=== PATIENT | male | born 2005 | race Caucasian/White ===

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

== ENCOUNTER 2024-02-24 13:49 | Emergency (ER) | payer SELFPAY ==
[2024-02-24 13:51] VITALS: BP 132/79; PULSE 94; RESP 18; TEMP 36.6; O2SAT 99
[2024-02-24] MEDS: HYDROcodone/acetaminophen (*CRX) 5-325 MG TABLET 1 TAB PO (15:08)
--- NOTE | 2024-02-24 15:17 | ED.DENTAL ---
HPI - Dental/Oral General Chief complaint: Dental/Oral Stated complaint: L. dental abscess and swelling Time Seen by Provider: 02/24/24 14:41 History of Present Illness HPI Narrative: Patient is a 18-year-old male who presents ER with dental pain. left upper side of the mouth. Swelling noted in worsening over last couple days. Has pain with eating. He is able to drink. No fevers or chills or sweats. Cannot afford a dentist. Has been on antibiotics for currently for several months. Related Data Allergies Allergy/AdvReac Type Severity Reaction Status Date / Time diphenhydramine Allergy Intermediate Rash Verified 02/24/24 13:50 [From Benadryl] Penicillins Allergy Intermediate Rash Verified 02/24/24 13:50 Review of Systems Constitutional: Constitutional: Reports no additional constitutional complaints ENT: Denies dysphagia and Denies nasal congestion Comments: Dental pain and left facial swelling PMFSH Past Medical History Medical History No significant medical problems Surgical History Surgical History No pertinent past surgical history Social History Social History Tobacco type: e-cigarettes/vaping Exam Narrative: GENERAL: Well-appearing, well-nourished, and in no acute distress. HEAD: Normocephalic, atraumatic. ENT: Mucous membranes moist. left upper facial swelling. Tenderness along the gumline without visualized abscess. Poor dentition. CHEST: Clear to auscultation. No respiratory distress. HEART: Regular rate and rhythm. Normal peripheral pulses. EXTREMITIES: Normal range of motion. No edema. NEURO: Alert and oriented x3. PSYCH: Normal mood and affect. Course Course Emergency Course: [place] for pain. Discharged with clindamycin. Vital Signs Vital signs: Vital Signs Temperature 97.9 F 02/24/24 13:51 Pulse Rate 94 02/24/24 13:51 Respiratory Rate 18 02/24/24 13:51 Blood Pressure 132/79 02/24/24 13:51 Pulse Oximetry 99 02/24/24 13:51 Oxygen Delivery Room Air 11/19/24 13:51 Temperature 97.9 F 02/24/24 13:51 Pulse Rate 94 02/24/24 13:51 Respiratory Rate 18 02/24/24 13:51 Blood Pressure 132/79 02/24/24 13:51 Pulse Oximetry 99 02/24/24 13:51 Oxygen Delivery Room Air 02/24/24 13:51 Discharge Plan Discharge Clinical Impression: Dental abscess Patient Disposition: Home, Self-Care Condition: Stable Instructions: Antibiotic Form, Dental Abscess (ED) Additional Instructions: Return the ER if you cannot breathe, you cannot swallow, or you have additional concerns. Prescriptions: New clindamycin HCl 150 mg capsule 450 mg PO TID 10 Days Qty: 90 0RF hydrocodone-acetaminophen 5-325 mg tablet 1 tablet PO Q6H PRN (Reason: pain) Qty: 12 0RF No Action clindamycin HCl 300 mg capsule 300 mg PO Q8H 10 Days Qty: 30 0RF lidocaine HCl [Lidocaine Viscous] 2 % solution 1 applic mucous membrane QID PRN (Reason: pain) Qty: 100 0RF ibuprofen 800 mg tablet 800 mg PO TID PRN (Reason: pain) Qty: 20 0RF Follow-up/Referrals: Dental Referral Line [Outside] - 1 Week UNKNOWN,DOCTOR [Primary Care Provider] - Stand Alone Forms: Work/School Release IP
== END 2024-02-24 15:29 | disposition home or self-care (01) ==
PROVIDERS: Emergency Provider Emergency Medicine
DX: K04.7 Periapical abscess without sinus (principal); F17.290 Nicotine dependence, other tobacco product, uncomplicated
CPT/HCPCS: 99283; A9270